=== PATIENT | female | born 1975 | race Caucasian/White ===

== ENCOUNTER 2017-09-13 10:44 | Outpatient (CLI) | payer OTHER | END 2017-09-13 10:45 | disposition home or self-care (01) | LOC: BICRAD 10:44 | PROVIDERS: ATTEND Chiropractor | DX: M54.12 Radiculopathy, cervical region (principal) | CPT/HCPCS: 72052 ==

== ENCOUNTER 2020-02-23 09:15 | Day surgery (SDC) | payer OTHER ==
[2020-02-22 10:46] VITALS: BMI 34.9
[2020-02-23] MEDS ORDERED: Midazolam HCl 2 mg/2 ml Vial ONE (10:02)
[2020-02-23] MEDS ORDERED: Fentanyl 100 MCG/2 ML VIAL ONE ×2 (10:02→11:12)
[2020-02-23] MEDS ORDERED: Scopolamine 1.5 mg/72 hour Patch ONE (10:28)
[2020-02-23] MEDS ORDERED: Promethazine HCl 25 MG/ML VIAL ONE (11:12)
[2020-02-23] MEDS ORDERED: Levofloxacin 500 mg/D5W 100 ml Premix Bag ONE (11:15)
[2020-02-23] MEDS ORDERED: Clindamycin/D5W 900 mg/50 ml Premix Bag ONE (11:15)
[2020-02-23] MEDS ORDERED: Propofol 500 MG/50 ML VIAL ONE (11:27)
[2020-02-23] MEDS ORDERED: Fentanyl 100 MCG/2 ML VIAL IV PRN (11:56)
[2020-02-23] MEDS ORDERED: Zolpidem Tartrate 5 MG TAB PO PRN (12:00)
[2020-02-23] MEDS ORDERED: Ketorolac Tromethamine 30 MG/ML VIAL IVP SCH (12:00)
[2020-02-23] MEDS ORDERED: HYDROcodone/Acetaminophen 10/325 mg Tablet PO PRN ×2 (12:00)
[2020-02-23] MEDS ORDERED: Ropivacaine 0.2% 550 ML 550 ML NERVE BLCK SCH (12:00)
[2020-02-23] MEDS ORDERED: traMADol HCl 50 MG TAB PO PRN ×2 (12:00)
[2020-02-23] MEDS ORDERED: Promethazine HCl 25 MG/ML VIAL IM PRN (12:00)
[2020-02-23] MEDS ORDERED: Ondansetron PF 4 MG/2 ML Vial IVP PRN (12:00)
[2020-02-23] MEDS ORDERED: PROPOFOL 60 ML ONE (12:10)
[2020-02-23] MEDS ORDERED: Propofol 1,000 MG/100 ML VIAL IV ONE (12:11)
[2020-02-23] MEDS ORDERED: Dexamethasone 20 MG/5 ML VIAL ONE (12:26)
[2020-02-23] MEDS ORDERED: PROPOFOL 200 MG/20 ML VIAL ONE (12:26)
[2020-02-23] MEDS ORDERED: Ropivacaine 0.5% HCl/PF (150 MG/30 ML VIAL) ONE (12:26)
[2020-02-23] MEDS ORDERED: Ondansetron PF 4 MG/2 ML Vial ONE (12:26)
[2020-02-23] MEDS ORDERED: Lidocaine 1% PF 5 ML VIAL ONE (12:26)
[2020-02-23] MEDS ORDERED: Ketorolac Tromethamine 30 MG/ML VIAL ONE (12:26)
[2020-02-23] MEDS ORDERED: Ropivacaine 0.2% HCl/PF (40 MG/20 ML VIAL) ONE (12:26)
[2020-02-23] MEDS ORDERED: Lidocaine 1% w/Epinephrine 1:100K 20 ML VIAL ONE (12:39)
--- NOTE | 2020-02-23 13:18 | RAD ---
EXAM: XR Elbow Lt 2 View DATE: 02/23/2020 11:15 AM INDICATION: Left radial head replacement COMPARISON: CT of the left upper extremity dated February 09, 2020 FINDIN fluoroscopic spot images of the left elbow. The radial head has been removed and there delacruz s been interval placement of a radial head prosthesis. Prosthetic component projects in the expected position. Radiocapitellar alignment is normal-appearing. Total fluoroscopic time was 9.6 sec onds. Total exposure was 2.50 mCi. IMPRESSION:Radial head replacement.
[2020-02-23] MEDS ORDERED: HYDROcodone/Acetaminophen 5/325 mg Tablet ONE (14:17)
--- NOTE | 2020-02-24 10:10 | OP ---
DATE OF PROCEDURE: 02/23/2020 PREOPERATIVE DIAGNOSES: 1. Left elbow dislocation with a radial head fracture, fracture dislocation, comminuted radial head. 2. Distal radius fracture, extra-articular, nondisplaced, cortical defect. POSTOPERATIVE DIAGNOSES: 1. Left elbow dislocation with a radial head fracture, fracture dislocation, comminuted radial head. 2. Distal radius fracture, extra-articular, nondisplaced, cortical defect. PROCEDURE PERFORMED: Left radial head replacement. 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 ANESTHESIA: Dr. Cid. The patient received a general endotracheal intubation. ESTIMATED BLOOD LOSS: Less than 30 mL. TOURNIQUET TIME: 53 minutes. ANTIBIOTICS: Levaquin 500 and clindamycin 900. IMPLANTS: An [employer] 18 mm head with a 4.5 mm stem, standard. COMPLICATIONS: None. HISTORY OF PRESENT ILLNESS: Ms. Koehler is a 44-year-old female, status post fall, elbow dislocation, which was closed reduced. CT scan showed comminution of radial head. I discussed that she had a fragment that was in between the patient's the lesser sigmoid notch and the radial head. The comminution was not repairable and I felt that a radial head replacement was the best course of treatment. I discussed with her the risks and benefits of the surgery. I discussed I may have to repair collateral ligaments if they are unstable. She understood those risks and benefits to include pain, scar, bleeding, infection, damage to vital structures, decreased range of motion and strength, failure of procedure, need for hardware removal, arthritis, loss of life or limb. She understood the risks and benefits of the procedure and elected to proceed. DESCRIPTION OF PROCEDURE: Time-out was performed designating the patient's left upper extremity as the operative site based on site, consents, and marking. After time-out, the patient's left upper extremity was prepped and draped in a sterile fashion. Tourniquet was brought up and left for a total of 53 minutes. I made an incision obliquely over the patient's lateral epicondyle. I dissected down, following Neyda interval, coming down onto the patient's radial head. I then took down the patient's capsule released dorsally any of the fibers of the supinator to better expose the patient's radial head. Came down the capsule, placed Hohmanns across to make my cut and cut the radial head, removing it to size. There was a fragment that was displaced and stuck in the lesser sigmoid notch between the radius and ulna, which I was able to remove. There was about 3 total small fragments in the radial head, removed those fragments, sized to an 18, that fit a little bit better than the 20 perfectly with the cartilage that needed to be down sized to match the bony anatomy. We then trialed and reamed up to almost 5.5, but it was too tight, therefore elected to put a 4.5, I smoothed the cortex to help with my positioning, placed +2 stem with a standard head 18 mm, which was still a little bit too long. I ultimately stayed with a 4.5 standard stem and 18 mm head. I took out the radial head and tested the collaterals, which I saw no opening lateral or medial ulnar collateral collateral ligaments. I then placed my implant, washed, and closed with 0 Vicryl. I trialed in a full extension, I did not feel any gross laxity to either collateral ligament. I then closed with 2-0 and 3-0 nylon. I injected 8 mL of 1% lidocaine. The patient will be discharged home. Follow up in about 12 days. She can remove her splint in 5 days. Begin elbow, wrist, and hand range of motion. She will need a Velcro wrist splint of her left wrist. She will follow up with me. She will be given pain medications for discharge home. Job ID: [id number] [facility]
== END 2020-02-23 14:52 | disposition home or self-care (01) ==
LOC: SDC 09:15
PROVIDERS: ATTEND Orthopaedic Surgery
PROC: 0PRJ0JZ Replacement of Left Radius with Synthetic Substitute, Open Approach (ICD-10-PCS; principal; 2020-02-23)
PROC: 3E0T3BZ Introduction of Anesthetic Agent into Peripheral Nerves and Plexi, Percutaneous Approach (ICD-10-PCS; principal; 2020-02-23)
DX: S52.552A Other extraarticular fracture of lower end of left radius, initial encounter for closed fracture (principal); S52.125A Nondisplaced fracture of head of left radius, initial encounter for closed fracture; G89.18 Other acute postprocedural pain; Z88.0 Allergy status to penicillin; Z88.1 Allergy status to other antibiotic agents; Z88.5 Allergy status to narcotic agent; W10.9XXA Fall (on) (from) unspecified stairs and steps, initial encounter
CPT/HCPCS: 76000; A4306; C1776; J0690; J1100; J1885; J1956; J2250; J2405; J2550; J2704; J2795; J3010; J3490